=== PATIENT | female | born 1945 | race Caucasian/White ===

== ENCOUNTER → 2019-07-24 | Outpatient (CLI) | payer MEDICARE | END | disposition home or self-care (01) | LOC: OIH 13:34 | PROVIDERS: ATTEND Internal Medicine | DX: M19.041 Primary osteoarthritis, right hand (principal); M19.042 Primary osteoarthritis, left hand | CPT/HCPCS: 73130 ==

== ENCOUNTER → 2024-02-27 | Outpatient (CLI) | payer OTHER | END | disposition home or self-care (01) | LOC: OIH 13:49 | PROVIDERS: ATTEND Family Medicine | DX: M19.032 Primary osteoarthritis, left wrist (principal); M25.532 Pain in left wrist; M79.89 Other specified soft tissue disorders | CPT/HCPCS: 73110 ==

== ENCOUNTER → 2024-05-23 | Outpatient (CLI) | payer OTHER | END | disposition home or self-care (01) | LOC: RAH 10:15 | PROVIDERS: ATTEND Internal Medicine | DX: M81.0 Age-related osteoporosis without current pathological fracture (principal); M85.852 Other specified disorders of bone density and structure, left thigh | CPT/HCPCS: 77080 ==

== ENCOUNTER → 2024-07-08 | Outpatient (CLI) | payer OTHER ==
--- NOTE | 2024-07-08 15:32 | HMCIMG ---
SCOLIOSIS 2-3VW REASON: Scoliosis COMPARISON: None TECHNIQUE: 6 views scoliosis survey was performed in the AP and lateral view, including the entire spine. FINDINGS: There is S-shaped thoracolumbar scoliosis. The thoracic curvature is more broad-based and measures 31 degrees. There is a more focal curvature in the lumbar spine epicentered at L3 measuring 30 degrees. IMPRESSION: 1. S-shaped thoracolumbar scoliosis.
== END | disposition home or self-care (01) ==
LOC: RAH 14:08
PROVIDERS: ATTEND Family Medicine
DX: M41.85 Other forms of scoliosis, thoracolumbar region (principal)
CPT/HCPCS: 72082

== ENCOUNTER → 2025-02-04 | Outpatient (CLI) | payer MEDICARE ==
--- NOTE | 2025-02-04 15:57 | HMCIMG ---
CT MAXILLOFACIAL W/O CONTRAST HISTORY: Sinusitis COMPARISON: None TECHNIQUE: Multiple sequential high-resolution axial images of the paranasal sinuses were obtained. Postprocessing sagittal and coronal reconstruction images were also obtained. Patient was not given contrast through intravenous route. FINDINGS: Nasal septum is deviated towards right. There is nasal polyposis. There is mild mucoperiosteal thickening involving the left sphenoid sinus. The infundibula are patent bilaterally. No acute displaced fracture is seen. There is no evidence of air-fluid level in the paranasal sinuses. Parapharyngeal fat planes are preserved bilaterally. IMPRESSION: 1. No acute displaced fracture is seen. Mild left sphenoid sinus disease. CT was performed with one or more following dose reduction techniques: automated exposure control, adjustment of the mA and kv according to patient's size, or use of a iterative reconstruction technique.
== END | disposition home or self-care (01) ==
LOC: RAH 13:36
PROVIDERS: ATTEND Otolaryngology
DX: J34.2 Deviated nasal septum (principal); J32.3 Chronic sphenoidal sinusitis; J32.4 Chronic pansinusitis; J33.8 Other polyp of sinus; H69.83 Other specified disorders of Eustachian tube, bilateral; H91.21 Sudden idiopathic hearing loss, right ear; H91.8X3 Other specified hearing loss, bilateral
CPT/HCPCS: 70486